=== PATIENT | female | born 2000 | race Caucasian/White ===

== ENCOUNTER 2023-12-13 19:02 | Emergency (ER) | payer BC ==
[~2023-12-13] VITALS: Ht 167.6 cm; Wt 61.0 kg
[2023-12-13 19:22] VITALS: TEMP 97.3; O2SAT 98
[2023-12-13] MEDS ORDERED: LIDOCAINE HCL/PF 1% 10 MG/ML 5ML VIAL INFIL ONE (19:30)
[2023-12-13] MEDS ORDERED: TETANUS, DIPHTHERIA, PERTUSSIS VAC/PF 0.5ML (>10YR OLD) IM ONE (19:30)
[2023-12-13] MEDS ORDERED: BO1 TP (21:07)
[2023-12-13] MEDS ORDERED: AMOX1TAB16 MT (21:07)
[2023-12-13 22:16] VITALS: BP 116/78; PULSE 88; RESP 17
== END 2023-12-13 22:18 | disposition home or self-care (01) ==
LOC: ER 19:02
DX: S01.311A Laceration without foreign body of right ear, initial encounter (principal); X58.XXXA Exposure to other specified factors, initial encounter; Y93.89 Activity, other specified; Y92.89 Other specified places as the place of occurrence of the external cause; Y99.8 Other external cause status
CPT/HCPCS: 12013; 99282; Z7610 ×2

== ENCOUNTER 2023-12-15 20:20 | Emergency (ER) | payer BC ==
[~2023-12-15] VITALS: Ht 167.6 cm; Wt 61.0 kg
[~2023-12-15 20:20] MED LIST: AMOX1TAB16 MT; BO1 TP
[2023-12-15 20:32] VITALS: O2SAT 97
[2023-12-15 21:57] VITALS: BP 105/74; PULSE 80; RESP 18; TEMP 98.5
== END 2023-12-15 21:57 | disposition home or self-care (01) ==
LOC: ER 20:20
DX: S01.311D Laceration without foreign body of right ear, subsequent encounter (principal); Z98.890 Other specified postprocedural states; X58.XXXD Exposure to other specified factors, subsequent encounter
CPT/HCPCS: 99281